=== PATIENT | female | born 1975 | race Caucasian/White ===

== ENCOUNTER → 2016-10-09 | Outpatient (CLI) | payer BC ==
[2016-10-10 08:31] LABS: CONTROL LINE INT CTR LINE PRESENT; HIV SCRN NEGATIVE (NEGATIVE); HIV SCRN1 NEGATIVE (NEGATIVE)
== END | disposition home or self-care (01) ==
LOC: M LAB 16:29
PROVIDERS: ATTEND Podiatrist
DX: Z11.4 Encounter for screening for human immunodeficiency virus [HIV] (principal)

== ENCOUNTER → 2016-12-05 | Outpatient (CLI) | payer BC ==
[2016-12-05 06:50] LABS: BASO % 0.4 % (0.0-1.0); EOS # 0.1 K/mm3 (0.0-0.50); EOS % 2.6 % (0.0-3.0); LARGE UNSTAINED CELL # 0.1 K/mm3 (0.0-0.4); LARGE UNSTAINED CELL % 1.8 % (0.0-4.0); LYMPH # 1.3 K/mm3 (1.5-4.5); LYMPH % 30.4 % (24.0-44.0); MEAN CORPUSCULAR HEMOGLOBIN 29.3 pg (27.0-33.0); MEAN CORPUSCULAR VOLUME 86.1 fl (80.0-96.0); MONO # 0.3 K/mm3 (0.0-0.8); MONO % 6.6 % (0.0-5.0); NEUTROPHILS # 2.3 K/mm3 (1.8-7.7); NEUTROPHILS % 58.2 % (36.0-66.0); PLATELET COUNT, AUTOMATED 192 k/mm3 (150-450); RED CELL DISTRIBUTION WIDTH 12.3 % (11.5-14.5); WHITE BLOOD COUNT 3.9 K/mm3 (4.0-10.0)
[2016-12-05 07:08] LABS: ALBUMIN 3.4 GM/DL (3.2-5.2); ALBUMIN/GLOBULIN RATIO 1.21 (1.00-1.93); ALKALINE PHOSPHATASE 51 U/L (45-117); ALT/SGPT 15 U/L (12-78); ANION GAP 9 MEQ/L (8-16); AST/SGOT 14 U/L (15-37); BILIRUBIN,TOTAL 0.8 MG/DL (0.2-1.0); BLOOD UREA NITROGEN 19 MG/DL (7-18); CALCIUM LEVEL 8.4 MG/DL (8.5-10.1); CARBON DIOXIDE LEVEL 26 MEQ/L (21-32); CHLORIDE LEVEL 108 MEQ/L (98-107); CHOLESTEROL LEVEL 180 MG/DL (<200); CREATININE FOR GFR 0.92 MG/DL (0.55-1.02); FERRITIN 6 NG/ML (8-252); FREE T4 1.08 NG/DL (0.76-1.46); GLOMERULAR FILTRATION RATE > 60.0 (>58); GLUCOSE, FASTING 95 MG/DL (70-105); POTASSIUM SERUM 4.1 MEQ/L (3.5-5.1); SODIUM LEVEL 143 MEQ/L (136-145); TOTAL PROTEIN 6.2 GM/DL (6.4-8.2); TRIGLYCERIDES LEVEL 66 MG/DL (<150)
[2016-12-05 10:38] LABS: FOLATE > 24.0 NG/ML; VITAMIN B12 LEVEL 236 PG/ML
== END ==
LOC: M LAB 06:13
PROVIDERS: ATTEND Nurse Practitioner Family
DX: R53.83 Other fatigue (principal); D50.9 Iron deficiency anemia, unspecified; Z13.220 Encounter for screening for lipoid disorders; E55.9 Vitamin D deficiency, unspecified; E53.8 Deficiency of other specified B group vitamins

== ENCOUNTER 2017-08-27 11:19 | Emergency (ER) | payer BC ==
[~2017-08-27] VITALS: Ht 160 cm; Wt 80.9 kg
[2017-08-27] MEDS ORDERED: ONDANSETRON 4MG/2ML VIAL (J2405) IV ONE (12:45)
[2017-08-27] MEDS ORDERED: MORPHINE 4 MG/ML 1ML SYRINGE IV PRN (12:45)
[2017-08-27] MEDS ORDERED: NS 1,000 ML IV ONE (12:45)
[2017-08-27 13:03] LABS: BASO % 0.2 % (0.0-1.0); EOS % 0.5 % (0.0-3.0); IMMATURE GRANULOCYTE % 0.5 % (0-0); LYMPH # 0.6 10^3/uL (1.5-4.5); LYMPH % 13.2 % (24.0-44.0); MEAN CORPUSCULAR HEMOGLOBIN 28.7 pg (27.0-33.0); MEAN CORPUSCULAR HGB CONC 33.7 g/dl (32.0-36.5); MEAN CORPUSCULAR VOLUME 85.2 fl (80.0-96.0); MONO # 0.3 10^3/uL (0.0-0.8); MONO % 6.3 % (0.0-5.0); NEUTROPHILS # 3.5 10^3/uL (1.8-7.7); NEUTROPHILS % 79.3 % (36.0-66.0); PLATELET COUNT, AUTOMATED 164 10^3/uL (150-450); RED CELL DISTRIBUTION WIDTH 12.2 % (11.5-14.5); WHITE BLOOD COUNT 4.4 10^3/uL (4.0-10.0)
[2017-08-27 13:24] LABS: ALBUMIN 3.5 GM/DL (3.2-5.2); ALBUMIN/GLOBULIN RATIO 1.06 (1.00-1.93); ALKALINE PHOSPHATASE 55 U/L (45-117); ALT/SGPT 28 U/L (12-78); ANION GAP 6 MEQ/L (8-16); AST/SGOT 21 U/L (7-37); BILIRUBIN,DIRECT 0.3 MG/DL (0.0-0.2); BILIRUBIN,TOTAL 1.4 MG/DL (0.2-1.0); BLOOD UREA NITROGEN 12 MG/DL (7-18); CARBON DIOXIDE LEVEL 29 MEQ/L (21-32); CHLORIDE LEVEL 104 MEQ/L (98-107); GLOMERULAR FILTRATION RATE > 60.0 (>58); GLUCOSE, FASTING 93 MG/DL (70-105); POTASSIUM SERUM 3.6 MEQ/L (3.5-5.1); SODIUM LEVEL 139 MEQ/L (136-145); TOTAL PROTEIN 6.8 GM/DL (6.4-8.2)
[2017-08-27] MEDS ORDERED: ISOVUE-370 76% 100ML VIAL (Q9967) As Ordered ONE (13:25)
--- NOTE | 2017-08-27 14:04 | REP ---
Clinical: Right lower quadrant pain. Technique: Axial contrast enhanced images from the lung bases to the pubic symphysis using oral (per protocol) and 100 ml Isovue 370 intravenous contrast material coronal and sagittal re-formations. Findings: Mural thickening of the ascending and proximal transverse colon suggests infectious/inflammatory colitis. There is no evidence for bowel obstruction and a normal appendix is identified in the right lower quadrant. Liver, spleen, pancreas, gallbladder, bilateral adrenal glands and kidneys are normal. Pelvis demonstrates normal bladder and age-appropriate uterus/adnexa. No pelvic fluid or ascites. No free air. No significant adenopathy. Vasculature is within normal limits. Musculoskeletal structures are intact. Impression: 1. Findings suggesting acute ascending colitis. Normal appendix. No free fluid. Signed by Geovanni Lizama MD 08/27/2017 01:57 P
[2017-08-27] MEDS ORDERED: GI COCKTAIL 50ML BTL(HYOSCYAMINE/MAALOX/LIDOCAINE VISCOUS)(1:3:1) PO ONE (14:30)
[2017-08-27 14:33] VITALS: BP 103/63
== END 2017-08-27 14:40 | disposition home or self-care (01) ==
LOC: M ED 11:19
DX: K21.9 Gastro-esophageal reflux disease without esophagitis (principal); K52.9 Noninfective gastroenteritis and colitis, unspecified; Z88.5 Allergy status to narcotic agent
CPT/HCPCS: 36415; 74177; 80048; 80076; 81001; 81025; 83690; 85025; 96374; 96375; 99284; J2405; Q9967

== ENCOUNTER → 2017-09-09 | Outpatient (REF) | payer BC ==
[2017-09-09 14:06] LABS: ALBUMIN 3.7 GM/DL (3.2-5.2); ALBUMIN/GLOBULIN RATIO 1.23 (1.00-1.93); ALKALINE PHOSPHATASE 55 U/L (45-117); ALT/SGPT 19 U/L (12-78); ANION GAP 8 MEQ/L (8-16); AST/SGOT 13 U/L (7-37); BILIRUBIN,TOTAL 0.5 MG/DL (0.2-1.0); BLOOD UREA NITROGEN 19 MG/DL (7-18); CALCIUM LEVEL 8.8 MG/DL (8.5-10.1); CARBON DIOXIDE LEVEL 28 MEQ/L (21-32); CHLORIDE LEVEL 106 MEQ/L (98-107); CREATININE FOR GFR 0.86 MG/DL (0.55-1.02); GLOMERULAR FILTRATION RATE > 60.0 (>58); GLUCOSE, FASTING 82 MG/DL (70-105); POTASSIUM SERUM 4.1 MEQ/L (3.5-5.1); SODIUM LEVEL 142 MEQ/L (136-145); TOTAL PROTEIN 6.7 GM/DL (6.4-8.2)
== END ==
LOC: M SFHCPLAZ 11:10
PROVIDERS: ATTEND Nurse Practitioner Family
DX: K52.9 Noninfective gastroenteritis and colitis, unspecified (principal); E55.9 Vitamin D deficiency, unspecified

== ENCOUNTER → 2017-10-08 | Outpatient (CLI) | payer BC ==
[2017-10-08 13:46] LABS: HEMATOCRIT 39.4 % (36.0-47.0); MEAN CORPUSCULAR HEMOGLOBIN 28.3 pg (27.0-33.0); MEAN CORPUSCULAR VOLUME 85.7 fl (80.0-96.0); PLATELET COUNT, AUTOMATED 206 10^3/uL (150-450); WHITE BLOOD COUNT 4.4 10^3/uL (4.0-10.0)
[2017-10-08 13:53] LABS: FERRITIN 11 NG/ML (8-252)
[2017-10-08 14:37] LABS: FOLATE 12.2 NG/ML; VITAMIN B12 LEVEL 338 PG/ML
== END ==
LOC: M WUC 09:33
DX: E53.8 Deficiency of other specified B group vitamins (principal)
CPT/HCPCS: 82746

== ENCOUNTER 2017-11-27 07:44 | Day surgery (SDC) | payer BC ==
[~2017-11-27 07:44] MED LIST: LIDOCAINE 2% INJ 100 MG/5 ML SDV (FOR ANES.) As Ordered; PROPOFOL 200 MG/20 ML VIAL As Ordered
[2017-11-27] MEDS: NS 1,000 ML IV (08:15)
[2017-11-27] MEDS ORDERED: fentaNYL 100 MCG/2 ML INJECTION (J3010) As Ordered (08:38)
[2017-11-27] MEDS ORDERED: PROPOFOL 200 MG/20 ML VIAL As Ordered (09:26)
== END 2017-11-27 10:17 | disposition home or self-care (01) ==
LOC: M OPP 07:44
DX: R93.3 Abnormal findings on diagnostic imaging of other parts of digestive tract (principal); K63.89 Other specified diseases of intestine; K64.8 Other hemorrhoids; R10.13 Epigastric pain; K22.8 Other specified diseases of esophagus; K29.70 Gastritis, unspecified, without bleeding; K21.9 Gastro-esophageal reflux disease without esophagitis; K52.9 Noninfective gastroenteritis and colitis, unspecified; E55.9 Vitamin D deficiency, unspecified; F32.9 Major depressive disorder, single episode, unspecified; F41.9 Anxiety disorder, unspecified; Z88.5 Allergy status to narcotic agent; Z79.899 Other long term (current) drug therapy; Z80.1 Family history of malignant neoplasm of trachea, bronchus and lung; Z80.41 Family history of malignant neoplasm of ovary
CPT/HCPCS: 45380

== ENCOUNTER → 2018-01-29 | Outpatient (CLI) | payer BC | LOC: M WHC 15:12 | DX: R92.2 Inconclusive mammogram (principal) | CPT/HCPCS: 77067 ==

== ENCOUNTER → 2018-01-29 | Outpatient (REF) | payer BC ==
[2018-01-31 14:11] LABS: HPV HYBRID CAPTURE II Negative (Negative)
== END ==
LOC: M SFHCWAGY 15:50
DX: Z12.4 Encounter for screening for malignant neoplasm of cervix (principal)
CPT/HCPCS: G0123

== ENCOUNTER → 2018-02-09 | Outpatient (CLI) | payer BC | LOC: M WHC 08:09 | DX: N92.0 Excessive and frequent menstruation with regular cycle (principal) | CPT/HCPCS: 76830 ==

== ENCOUNTER → 2018-02-09 | Outpatient (CLI) | payer BC | LOC: M RAD 14:30 | DX: Z12.31 Encounter for screening mammogram for malignant neoplasm of breast (principal); N60.02 Solitary cyst of left breast | CPT/HCPCS: 77065 ==

== ENCOUNTER → 2018-03-02 | Outpatient (REF) | payer BC | LOC: M SFHCWAGY 13:54 | DX: R87.613 High grade squamous intraepithelial lesion on cytologic smear of cervix (HGSIL) (principal); N92.0 Excessive and frequent menstruation with regular cycle; R93.8 Abnormal findings on diagnostic imaging of other specified body structures | CPT/HCPCS: 88304 ==

== ENCOUNTER → 2019-03-23 | Outpatient (CLI) | payer BC ==
[~2019-03-23] MED LIST changes: -LIDOCAINE 2% INJ 100 MG/5 ML SDV (FOR ANES.) As Ordered; +MULT1TAB10 PO; +OMEP40CA2 PO; -PROPOFOL 200 MG/20 ML VIAL As Ordered; +VITA50005 PO
--- NOTE | 2019-03-23 17:25 | REP ---
Clinical: Shortness of breath . Comparison: 03/05/2018 . Technique: PA and lateral. Findings: The mediastinum and cardiac silhouette are normal. The lung vasquez are clear and without acute consolidation, effusion, or pneumothorax. The skeletal structures are intact and normal. Impression: 1. No acute cardiopulmonary process. Electronically Signed by Geovanni Lizama MD 03/23/2019 05:16 P
== END ==
LOC: M WUC 17:06
PROVIDERS: ATTEND Nurse Practitioner Adult Health
DX: R06.02 Shortness of breath (principal); R07.89 Other chest pain

== ENCOUNTER → 2019-06-02 | Outpatient (REF) | payer BC ==
[~2019-06-02] MED LIST changes: -OMEP40CA2 PO; +OMEP40CA97 PO
== END ==
LOC: M SFHCWAGY 16:11
PROVIDERS: ATTEND Nurse Practitioner Family
DX: Z12.4 Encounter for screening for malignant neoplasm of cervix (principal)

== ENCOUNTER → 2019-06-02 | Outpatient (CLI) | payer BC ==
--- NOTE | 2019-06-02 16:01 | REPMRS ---
Patient History The patient states she had a clinical breast exam in 05/2019. Family history of endometrial cancer at age 50 or over in maternal grandmother. No Hormone Replacement Therapy 3D TOMOSYNTHESIS WAS PERFORMED. The Bruno Dunne lifetime risk for breast cancer is 10.0%. Digital Woman Screen Mammo: June 02, 2019 - Exam #: [id number] Bilateral CC and MLO view(s) were taken. Technologist: Jessica Wellington, Technologist Prior study comparison: February 09, 2018, left breast digital mammo diagnostic unilateral, performed at [facility]. January 29, 2018, digital woman screen mammo performed at [facility]. FINDINGS: The breast tissue is heterogeneously dense. This may lower the sensitivity of mammography. There has been no change in the appearance of the mammogram from the prior studies. There is a moderate amount of residual fibroglandular tissue which is fairly symmetric. There is no interval development of dominant mass, areas of architectural distortion, or clustered microcalcification typical of malignancy. Assessment: BI-RADS/ACR category 1 mammogram. Negative Mammogram. Recommendation Routine screening mammogram in 1 year (for women over age 40). This mammogram was interpreted with the aid of an FDA-approved computer-aided dectection system. Electronically Signed By: Enio Elliott MD 06/02/19 1600
== END ==
LOC: M WHC 14:49
PROVIDERS: ATTEND Nurse Practitioner Family
DX: Z12.31 Encounter for screening mammogram for malignant neoplasm of breast (principal)

== ENCOUNTER → 2019-06-03 | Outpatient (REF) | payer BC ==
[2019-06-08 14:07] LABS: HPV HYBRID CAPTURE II Negative (Negative)
== END ==
LOC: M SFHCWAGY 07:54
PROVIDERS: ATTEND Nurse Practitioner Family
DX: Z12.4 Encounter for screening for malignant neoplasm of cervix (principal)

== ENCOUNTER → 2020-01-12 | Outpatient (CLI) | payer BC ==
--- NOTE | 2020-01-13 03:01 | REP ---
Clinical: Toxic in relation with shortness of breath . Comparison: 03/23/2019 . Technique: PA and lateral. Findings: The mediastinum and cardiac silhouette are normal. The lung vasquez are clear and without acute consolidation, effusion, or pneumothorax. The skeletal structures are intact and normal. Impression: 1. No acute cardiopulmonary process. Electronically Signed by Geovanni Lizama MD 01/13/2020 02:52 A
== END ==
LOC: M LRY 15:38
PROVIDERS: ATTEND Internal Medicine Cardiovascular Disease
DX: T59.891A Toxic effect of other specified gases, fumes and vapors, accidental (unintentional), initial encounter (principal); R06.02 Shortness of breath

== ENCOUNTER → 2020-08-30 | Outpatient (CLI) | payer BC ==
--- NOTE | 2020-08-30 16:49 | REPMRS ---
Patient History The patient states she had a clinical breast exam in 08/2020. Family history of endometrial cancer at age 50 or over in maternal grandmother. No Hormone Replacement Therapy Digital Woman Screen Mammo: August 30, 2020 - Exam #: [id number] Bilateral CC and MLO view(s) were taken. Technologist: Jessica Wellington, Technologist Prior study comparison: June 02, 2019, bilateral digital woman screen mammo performed at [facility]. February 09, 2018, left breast digital mammo diagnostic unilateral, performed at [facility]. FINDINGS: There are scattered fibroglandular densities. The Volpara volumetric breast density category is:B. There has been no change in the appearance of the mammogram from the prior studies. There is a mild amount of scattered fibroglandular density which is fairly symmetric. There is no interval development of dominant mass, architectural distortion, or grouped microcalcification suggestive of malignancy. 3-D tomosynthesis shows no additional findings. Assessment: BI-RADS/ACR category 1 mammogram. Negative Mammogram. Recommendation Routine screening mammogram of both breasts in 1 year (for women over age 40). This patient's [facility] Lifetime Breast Cancer Risk is estimated at 9.9 %. This mammogram was interpreted with the aid of an FDA-approved computer-aided dectection system. Electronically Signed By: Charles Diaz MD 08/30/20 [id number]
== END ==
LOC: M WHC 16:04
PROVIDERS: ATTEND Nurse Practitioner Family
DX: Z12.31 Encounter for screening mammogram for malignant neoplasm of breast (principal)

== ENCOUNTER → 2020-12-16 | Outpatient (CLI) | payer BC ==
--- NOTE | 2020-12-16 11:29 | REP ---
INDICATION: HEARTBURN/ PT HAS LABS FIRST. COMPARISON: 01/12/2020. TECHNIQUE: Upright PA and lateral chest. FINDINGS: The lung vasquez are clear. Cardiac size is normal. The luly, mediastinum and skeletal structures are unremarkable. IMPRESSION: Essentially negative PA and lateral chest There is no interval change. <Electronically signed by Enio Burton > 12/16/20 [id number]
[2020-12-16 11:59] LABS: BASO % 0.5 % (0.0-1.0); EOS # 0.1 10^3/uL (0.0-0.5); EOS % 2.3 % (0.0-3.0); HEMATOCRIT 35.9 % (36.0-47.0); HEMOGLOBIN 11.3 g/dl (12.0-15.5); LYMPH # 1.3 10^3/uL (1.5-5.0); LYMPH % 31.4 % (24.0-44.0); MEAN CORPUSCULAR HEMOGLOBIN 27.2 pg (27.0-33.0); MEAN CORPUSCULAR HGB CONC 31.5 g/dl (32.0-36.5); MEAN CORPUSCULAR VOLUME 86.5 fl (80.0-96.0); MONO # 0.4 10^3/uL (0.0-0.8); MONO % 10.6 % (2.0-8.0); NEUTROPHILS # 2.2 10^3/uL (1.5-8.5); NEUTROPHILS % 54.9 % (36.0-66.0); PLATELET COUNT, AUTOMATED 187 10^3/uL (150-450); RED BLOOD COUNT 4.15 10^6/uL (4.00-5.40)
[2020-12-16 12:22] LABS: HEMOGLOBIN A1c 5.2 %
[2020-12-16 12:41] LABS: ALBUMIN 3.5 GM/DL (3.2-5.2); ALT/SGPT 15 U/L (12-78); BILIRUBIN,TOTAL 0.6 MG/DL (0.2-1.0); BLOOD UREA NITROGEN 16 MG/DL (7-18); CALCIUM LEVEL 8.6 MG/DL (8.5-10.1); CARBON DIOXIDE LEVEL 27 MEQ/L (21-32); CHLORIDE LEVEL 109 MEQ/L (98-107); CHOLESTEROL LEVEL 207 MG/DL (<200); CHOLESTEROL RISK RATIO 3.136 (<5); CREATININE FOR GFR 0.78 MG/DL (0.55-1.30); FERRITIN 4 NG/ML (8-252); GLOMERULAR FILTRATION RATE > 60.0 (>58); GLUCOSE, FASTING 89 MG/DL (70-100); HDL CHOLESTEROL 66 MG/DL (>40); IRON (FE) 36 UG/DL (50-170); LDL CHOLESTEROL 131 MG/DL (<100); NON-HDL-C 141 MG/DL; PERCENT SATURATION 8.6 % (13.2-45.0); POTASSIUM SERUM 4.2 MEQ/L (3.5-5.1); SODIUM LEVEL 140 MEQ/L (136-145); TOTAL IRON BINDING CAPACITY 418 UG/DL (250-450); TOTAL PROTEIN 6.4 GM/DL (6.4-8.2); TRIGLYCERIDES LEVEL 51 MG/DL (<150)
== END ==
LOC: M LAB 10:31
PROVIDERS: ATTEND Nurse Practitioner Adult Health
DX: Z00.01 Encounter for general adult medical examination with abnormal findings (principal); D64.9 Anemia, unspecified; T59.891A Toxic effect of other specified gases, fumes and vapors, accidental (unintentional), initial encounter; R07.89 Other chest pain; Z79.899 Other long term (current) drug therapy; R06.02 Shortness of breath; R12 Heartburn

== ENCOUNTER → 2021-07-03 | Outpatient (CLI) | payer BC ==
[~2021-07-03] MED LIST changes: +OMEP40CA4 PO; -OMEP40CA97 PO
--- NOTE | 2021-07-04 17:05 | REPVR ---
PROCEDURE INFORMATION: Exam: MR Lumbar Spine Without Contrast Exam date and time: 07/03/2021 11:48 AM Age: 45 years old Clinical indication: Low back pain; Additional info: Lbp TECHNIQUE: Imaging protocol: Multiplanar magnetic resonance images of the lumbar spine without intravenous contrast. COMPARISON: CT ABD/PEL W/IV CONTRAST ONLY 08/27/2017 1:34 PM FINDINGS: Vertebrae: Anatomic alignment. No acute fracture seen. Spinal cord: The conus medullaris ends normally. The intervertebral discs are preserved in height and signal intensity. L1-L2: No significant disc disease. No significant spinal canal stenosis. No neural foraminal stenosis. L2-L3: No significant disc disease. No significant spinal canal stenosis. No neural foraminal stenosis. L3-L4: No significant disc disease. No significant spinal canal stenosis. No neural foraminal stenosis. L4-L5: Mild facet arthropathy. No stenoses. L5-S1: [id number] left and mild right facet arthropathy. No stenoses. Soft tissues: Nonspecific edema in the back subcutaneous fat, probably dependent/positional. Reproductive: The ovaries are partially visualized on the sagittal imaging. There are bilateral follicles. A dominant right follicle measures 1.8 cm. IMPRESSION: No lumbar stenoses or nerve root impingement. Electronically signed by: Jessica Quintana On 07/04/2021 17:05:15 PM
== END ==
LOC: M PLAIMG 11:08
PROVIDERS: ATTEND Nurse Practitioner Family
DX: M54.59 Other low back pain (principal)

== ENCOUNTER 2021-08-21 09:24 | Day surgery (SDC) | payer BC ==
[~2021-08-21] VITALS: Ht 160 cm; Wt 78.9 kg
[~2021-08-21 09:24] MED LIST changes: +NS 1,000 ML IV ONE
[2021-08-21] MEDS ORDERED: propofoL 200 MG/20 ML VIAL As Ordered ONE ×2 (10:47→10:57)
[2021-08-21] MEDS ORDERED: LIDOCAINE 2% 100MG/5ML SDV (FOR ANES.) As Ordered ONE (11:00)
--- NOTE | 2021-08-21 11:05 | ROOR ---
Patient Name: Yamini Kunz Procedure Date: 08/21/2021 10:47 AM Date of : 1975 Age: 45 Room: [facility] Gender: Female Note Status: Finalized Procedure: Colonoscopy Indications: Rectal bleeding Providers: Tanner Bourgeois Jr, MD Referring MD: LANA RUIZ NP Requesting Provider: Medicines: Propofol per Anesthesia Complications: No immediate complications. Procedure: Pre-Anesthesia Assessment: - Prior to the procedure, a History and Physical was performed, and patient medications and allergies were reviewed. The patient is competent. The risks and benefits of the procedure and the sedation options and risks were discussed with the patient. All questions were answered and informed consent was obtained. Patient identification and proposed procedure were verified by the physician and the nurse in the pre-procedure area and in the procedure room. Mental Status Examination: alert and oriented. Airway Examination: normal oropharyngeal airway and neck mobility. Respiratory Examination: clear to auscultation. CV Examination: normal. ASA Grade Assessment: II - A patient with mild systemic disease. After reviewing the risks and benefits, the patient was deemed in satisfactory condition to undergo the procedure. The anesthesia plan was to use moderate sedation / analgesia (conscious sedation). Immediately prior to administration of medications, the patient was re-assessed for adequacy to receive sedatives. The heart rate, respiratory rate, oxygen saturations, blood pressure, adequacy of pulmonary ventilation, and response to care were monitored throughout the procedure. The physical status of the patient was re-assessed after the procedure. The Colonoscope was introduced through the anus and advanced to the cecum, identified by appendiceal orifice and ileocecal valve. The colonoscopy was performed without difficulty. The patient tolerated the procedure well. The quality of the bowel preparation was adequate. Findings: The rectum, sigmoid colon, descending colon, transverse colon, ascending colon, cecum, appendiceal orifice and ileocecal valve appeared normal. Biopsies for histology were taken with a cold forceps from the cecum, ascending colon, transverse colon, descending colon and sigmoid colon for evaluation of microscopic colitis. Impression: - The rectum, sigmoid colon, descending colon, transverse colon, ascending colon, cecum, appendiceal orifice and ileocecal valve are normal. Biopsied. Recommendation: - Discharge patient to home (ambulatory). - Repeat colonoscopy in 10 years for screening purposes. Procedure Code(s): --- Professional --- 76961, Colonoscopy, flexible; with biopsy, single or multiple Diagnosis Code(s): --- Professional --- K62.5, Hemorrhage of anus and rectum CPT copyright 2019 [employer]. All rights reserved. The codes documented in this report are preliminary and upon youth development professional review may be revised to meet current compliance requirements. Tanner Bourgeois MD Tanner Bourgeois Jr, MD 08/21/2021 11:05:09 AM Electronically signed by Tanner Bourgeois Jr, MD Number of Addenda: 0 Note Initiated On: 08/21/2021 10:47 AM Estimated Blood Loss: Estimated blood loss: none.
[2021-08-21 11:25] VITALS: BP 82/52
== END 2021-08-21 11:38 | disposition home or self-care (01) ==
LOC: M OPP 09:24
PROVIDERS: ATTEND Surgery
DX: K62.5 Hemorrhage of anus and rectum (principal); D64.9 Anemia, unspecified; Z88.6 Allergy status to analgesic agent

== ENCOUNTER → 2021-09-19 | Outpatient (CLI) | payer BC ==
[~2021-09-19] MED LIST changes: -NS 1,000 ML IV ONE
== END ==
LOC: M WHC 14:49
PROVIDERS: ATTEND Nurse Practitioner Women's Health
DX: Z12.31 Encounter for screening mammogram for malignant neoplasm of breast (principal); R92.8 Other abnormal and inconclusive findings on diagnostic imaging of breast

== ENCOUNTER → 2021-09-19 | Outpatient (REF) | payer BC | LOC: M SFHCWAGY 17:16 | PROVIDERS: ATTEND Nurse Practitioner Women's Health | DX: Z01.419 Encounter for gynecological examination (general) (routine) without abnormal findings (principal) | CPT/HCPCS: 87624; G0123 ==

== ENCOUNTER → 2021-10-17 | Outpatient (CLI) | payer BC | LOC: M WHC 15:11 | PROVIDERS: ATTEND Nurse Practitioner Women's Health | DX: R92.8 Other abnormal and inconclusive findings on diagnostic imaging of breast (principal) | CPT/HCPCS: 76642; 77065; G0279 ==

== ENCOUNTER → 2021-11-01 | Outpatient (CLI) | payer BC ==
[~2021-11-01] MED LIST changes: +METHACHOLINE KIT (J7674) INH ONE
== END ==
LOC: M CARPUL 12:51
PROVIDERS: ATTEND Nurse Practitioner Adult Health
DX: R06.02 Shortness of breath (principal)

== ENCOUNTER 2022-02-10 19:40 | Emergency (ER) | payer BC ==
[~2022-02-10] VITALS: Ht 160 cm; Wt 80.1 kg
[~2022-02-10 19:40] MED LIST changes: -METHACHOLINE KIT (J7674) INH ONE
[2022-02-11] MEDS ORDERED: PERCOCET 5MG/325MG TAB PO ONE (00:35)
[2022-02-11] MEDS ORDERED: PERC5TAB12 PO (00:57)
[2022-02-11 01:00] VITALS: BP 113/69
== END 2022-02-11 01:16 | disposition home or self-care (01) ==
LOC: M ED 19:40
DX: S52.502A Unspecified fracture of the lower end of left radius, initial encounter for closed fracture (principal); W01.0XXA Fall on same level from slipping, tripping and stumbling without subsequent striking against object, initial encounter; Y92.833 Campsite as the place of occurrence of the external cause; Y93.9 Activity, unspecified; Y99.9 Unspecified external cause status; F17.200 Nicotine dependence, unspecified, uncomplicated; Z88.6 Allergy status to analgesic agent; Z79.899 Other long term (current) drug therapy

== ENCOUNTER → 2022-02-11 | Outpatient (CLI) | payer BC ==
[~2022-02-11] MED LIST changes: +PERC5TAB12 PO
== END ==
LOC: M RAD 14:40
PROVIDERS: ATTEND Nurse Practitioner Adult Health
DX: R06.02 Shortness of breath (principal)

== ENCOUNTER 2022-09-11 07:16 | Emergency (ER) | payer OTHER, BC ==
[~2022-09-11] VITALS: Ht 160 cm; Wt 79.5 kg
[2022-09-11] MEDS ORDERED: ACETAMINOPHEN 500 MG TAB PO ONE (10:45)
[2022-09-11 11:08] VITALS: BP 110/58
[2022-09-11 11:24] LABS: AMPHETAMINES LEVEL URINE NEGATIVE (NEGATIVE); BARBITURATES URINE NEGATIVE (NEGATIVE); BENZODIAZEPINES URINE NEGATIVE (NEGATIVE); CANNABINOIDS URINE NEGATIVE (NEGATIVE); COCAINE METABOLITE URINE NEGATIVE (NEGATIVE); METHADONE URINE NEGATIVE (NEGATIVE); OPIATES URINE NEGATIVE (NEGATIVE); PHENCYCLIDINE URINE NEGATIVE (NEGATIVE)
== END 2022-09-11 11:15 | disposition home or self-care (01) ==
LOC: M ED 07:16 → EDBD 07:16 → M ED 11:15
DX: S00.83XA Contusion of other part of head, initial encounter (principal); V44.5XXA Car driver injured in collision with heavy transport vehicle or bus in traffic accident, initial encounter; R53.83 Other fatigue; G89.29 Other chronic pain; M54.50 Low back pain, unspecified; Z88.5 Allergy status to narcotic agent

== ENCOUNTER → 2023-01-09 | Outpatient (CLI) | payer BC | LOC: M WHC 15:30 | PROVIDERS: ATTEND Advanced Practice Midwife | DX: Z12.31 Encounter for screening mammogram for malignant neoplasm of breast (principal) ==

== ENCOUNTER → 2023-01-29 | Outpatient (CLI) | payer BC | LOC: M WHC 15:11 | PROVIDERS: ATTEND Advanced Practice Midwife | DX: Z12.31 Encounter for screening mammogram for malignant neoplasm of breast (principal) ==

== ENCOUNTER → 2023-02-10 | Outpatient (REF) | payer BC ==
[2023-02-10 22:23] LABS: APPEARANCE, URINE CLEAR (CLEAR); BACTERIA, URINE AUTO NEGATIVE (NEGATIVE); BILIRUBIN, URINE AUTO NEGATIVE (NEGATIVE); BLOOD, URINE BLOOD 2+ (NEGATIVE); COLOR, URINE YELLOW (YELLOW); GLUCOSE, URINE (UA) AUTO NEGATIVE (NEGATIVE); KETONE, URINE AUTO NEGATIVE (NEGATIVE); LEUKOCYTE ESTERASE, URINE AUTO NEGATIVE (NEGATIVE); MUCUS, URINE SMALL (NEGATIVE); NITRITE, URINE AUTO NEGATIVE (NEGATIVE); PROTEIN, URINE AUTO NEGATIVE (NEGATIVE); RBC, URINE AUTO 7 /HPF (0-3); SPECIFIC GRAVITY URINE AUTO 1.023 (1.002-1.035); SQUAMOUS EPITHELIAL CELL UR AU 0 /HPF (0-6); UROBILINOGEN, URINE AUTO 0.2 mg/dL (0.0-2.0); WBC, URINE AUTO 0 /HPF (0-3)
== END ==
LOC: M LAB REF 21:59
PROVIDERS: ATTEND Physician Assistant Medical
DX: N39.0 Urinary tract infection, site not specified (principal)

== ENCOUNTER → 2024-09-03 | Outpatient (CLI) | payer BC ==
[2024-09-03 09:41] LABS: HEMATOCRIT 29.9 % (36.0-47.0); HEMOGLOBIN 8.9 g/dl (12.0-15.5); MEAN CORPUSCULAR HEMOGLOBIN 22.6 pg (27.0-33.0); MEAN CORPUSCULAR HGB CONC 29.8 g/dl (32.0-36.5); MEAN CORPUSCULAR VOLUME 76.1 fl (80.0-96.0); PLATELET COUNT, AUTOMATED 267 10^3/uL (150-450); RED BLOOD COUNT 3.93 10^6/uL (4.00-5.40); WHITE BLOOD COUNT 4.2 10^3/uL (4.0-10.0)
[2024-09-03 10:00] LABS: CORTISOL AM 12.5 UG/DL (4.3-22.4)
[2024-09-03 10:05] LABS: FOLLICLE STIMULATING HORMONE 6.1 mIU/ML; LUTEINIZING HORMONE 5.3 mIU/ML; PROLACTIN 8.11 NG/ML; THYROID STIMULATING HORMONE 1.331 uIU/ML (0.55-4.78)
[2024-09-03 10:06] LABS: ESTRADIOL 200.3 PG/ML; FREE T4 1.06 NG/DL (0.89-1.76)
[2024-09-03 10:07] LABS: PROGESTERONE 0.51 NG/ML
[2024-09-04 09:32] LABS: SEX HORMONE BINDING GLOBULIN 76 nmol/L (17-124)
== END ==
LOC: M LAB 07:57
PROVIDERS: ATTEND Obstetrics & Gynecology
DX: N95.1 Menopausal and female climacteric states (principal)

== ENCOUNTER → 2024-09-06 | Outpatient (CLI) | payer BC ==
[2024-09-06 07:06] LABS: BASO % 0.5 % (0.0-1.0); EOS # 0.1 10^3/uL (0.0-0.5); EOS % 2.3 % (0.0-3.0); HEMOGLOBIN 8.5 g/dl (12.0-15.5); LYMPH # 1.3 10^3/uL (1.5-5.0); LYMPH % 23.1 % (24.0-44.0); MEAN CORPUSCULAR HEMOGLOBIN 22.6 pg (27.0-33.0); MEAN CORPUSCULAR HGB CONC 30.4 g/dl (32.0-36.5); MEAN CORPUSCULAR VOLUME 74.5 fl (80.0-96.0); MONO # 0.4 10^3/uL (0.0-0.8); MONO % 6.5 % (2.0-8.0); NEUTROPHILS # 3.8 10^3/uL (1.5-8.5); NEUTROPHILS % 67.2 % (36.0-66.0); PLATELET COUNT, AUTOMATED 237 10^3/uL (150-450); RED BLOOD COUNT 3.76 10^6/uL (4.00-5.40); WHITE BLOOD COUNT 5.7 10^3/uL (4.0-10.0)
[2024-09-06 07:39] LABS: ALBUMIN 3.2 G/DL (3.2-5.2); ALKALINE PHOSPHATASE 48 U/L (35-104); ALT/SGPT 12 U/L (7.0-40); AST/SGOT < 8 U/L (<34); BILIRUBIN,TOTAL 0.7 MG/DL (0.3-1.2); BLOOD UREA NITROGEN 17 MG/DL (9-23); CARBON DIOXIDE LEVEL 27 MMOL/L (20-31); CHLORIDE LEVEL 106 MMOL/L (98-107); CHOLESTEROL LEVEL 201 MG/DL (<200); CHOLESTEROL RISK RATIO 2.71 (<5); GLOMERULAR FILTRATION RATE > 60.0 (>58); GLUCOSE, FASTING 96 MG/DL (60-100); IRON (FE) 17 UG/DL (50-170); LDL CHOLESTEROL 103.6 MG/DL (<100); MAGNESIUM LEVEL 1.9 MG/DL (1.8-2.4); POTASSIUM SERUM 4.3 MMOL/L (3.5-5.1); SODIUM LEVEL 140 MMOL/L (136-145); THYROID STIMULATING HORMONE 3.093 uIU/ML (0.55-4.78); TOTAL IRON BINDING CAPACITY 428 UG/DL (250-425); TOTAL PROTEIN 6.2 G/DL (5.7-8.2); TRIGLYCERIDES LEVEL 117 MG/DL (<150)
[2024-09-06 07:40] LABS: FERRITIN 2.7 NG/ML (7.3-270.7); FREE T4 1.08 NG/DL (0.89-1.76); TOTAL 25(OH) VITAMIN D 15.9 NG/ML (20.0-100.0)
== END ==
LOC: M LAB 06:36
PROVIDERS: ATTEND Nurse Practitioner Adult Health
DX: E78.5 Hyperlipidemia, unspecified (principal)

== ENCOUNTER → 2024-11-30 | Outpatient (CLI) | payer BC | LOC: M RAD 14:45 | DX: J01.91 Acute recurrent sinusitis, unspecified (principal) ==

== ENCOUNTER 2024-12-08 14:58 | Outpatient (CLI) | payer BC ==
[~2024-12-08] VITALS: Ht 160 cm; Wt 81.8 kg
[~2024-12-08 14:58] MED LIST changes: +ALBUTEROL SULFATE 2.5MG/0.5ML INH NEB SOLN INH PRN; +EPINEPHrine INJ 1 MG/ML 1ML AMP IM PRN; +diphenhydrAMINE 50MG/ML VIAL IV PRN; +methylPREDNISolone 125MG 2ML VIAL IV PRN
[2024-12-08] MEDS ORDERED: NS (Normal Saline) 0.9% 1,000 ML IV SCH (15:00)
[2024-12-08 15:10] VITALS: BP 104/51; O2SAT 99
[2024-12-08] MEDS: FERRIC CARBOXYMALTOSE 750 MG (VIAL MATE) IN 100ML NS IV ONE (15:28)
[2024-12-08 16:15] VITALS: BP 105/59; O2SAT 100
== END 2024-12-08 16:15 ==
LOC: M INFU 14:58
DX: D50.9 Iron deficiency anemia, unspecified (principal); Z88.5 Allergy status to narcotic agent
CPT/HCPCS: 96365; J1439

== ENCOUNTER 2024-12-15 15:35 | Outpatient (CLI) | payer BC ==
[~2024-12-15] VITALS: Ht 160 cm; Wt 81.0 kg
[2024-12-15 15:30] VITALS: BP 98/54; O2SAT 97
[~2024-12-15 15:35] MED LIST changes: +NS (Normal Saline) 0.9% 1,000 ML IV SCH
[2024-12-15] MEDS: FERRIC CARBOXYMALTOSE 750 MG (VIAL MATE) IN 100ML NS IV ONE (15:43)
[2024-12-15 16:10] VITALS: BP 106/58; O2SAT 98
[2024-12-15 16:25] VITALS: BP 66/58; O2SAT 98
== END 2024-12-15 16:25 ==
LOC: M INFU 15:35
DX: D50.9 Iron deficiency anemia, unspecified (principal); Z88.5 Allergy status to narcotic agent
CPT/HCPCS: 96365; J1439

== ENCOUNTER → 2024-12-30 | Outpatient (CLI) | payer BC ==
[~2024-12-30] MED LIST changes: -ALBUTEROL SULFATE 2.5MG/0.5ML INH NEB SOLN INH PRN; -EPINEPHrine INJ 1 MG/ML 1ML AMP IM PRN; -NS (Normal Saline) 0.9% 1,000 ML IV SCH; -diphenhydrAMINE 50MG/ML VIAL IV PRN; -methylPREDNISolone 125MG 2ML VIAL IV PRN
== END ==
LOC: M PLAIMG 07:50
PROVIDERS: ATTEND Otolaryngology
DX: J32.8 Other chronic sinusitis (principal)

== ENCOUNTER → 2025-08-04 | Outpatient (REF) | payer BC ==
[2025-08-09 13:37] LABS: HPV APTIMA Not Detected (Not Detected)
== END ==
LOC: M SFHCWAGY 17:44
PROVIDERS: ATTEND Advanced Practice Midwife
DX: Z12.4 Encounter for screening for malignant neoplasm of cervix (principal); R87.610 Atypical squamous cells of undetermined significance on cytologic smear of cervix (ASC-US)
CPT/HCPCS: 87624; G0123

== ENCOUNTER → 2025-08-04 | Outpatient (CLI) | payer BC | LOC: M WHC 14:26 | PROVIDERS: ATTEND Advanced Practice Midwife | DX: Z12.31 Encounter for screening mammogram for malignant neoplasm of breast (principal); R92.323 Mammographic fibroglandular density, bilateral breasts ==